=== PATIENT | male | born 1990 | race Caucasian/White ===

== ENCOUNTER 2024-10-18 13:26 | Emergency (ER) | payer SELFPAY ==
[2024-10-18 13:39] VITALS: BP 134/67; PULSE 83; RESP 16; TEMP 36.8; O2SAT 98; BMI 25.0
--- NOTE | 2024-10-18 17:57 | ED.DENTAL ---
HPI - Dental/Oral <Nanci Meredith PA-C - Last Filed: 10/18/24 18:42> General Chief complaint: Dental/Oral Stated complaint: facial swelling Time Seen by Provider: 10/18/24 17:51 Source: patient Mode of arrival: Ambulatory History of Present Illness HPI Narrative: Mr. Barrera is a pleasant 33-year-old male with no reported past medical history who presents to the emergency department for left jaw pain and swelling x2 days. Patient reports struggling with dental problems in the past. Yesterday he developed pain and swelling of the left lower jaw worsened today. He is occasionally having bloody drainage from this area. He has had an abscess on the right lower jaw in the past but never on the left. Denies fevers, chills, nausea, vomiting, flu-like symptoms. He does vape, no other drug use. He is moving to [place] tomorrow so was unable to see a dentist. Related Data Previous Rx's ?Medication ?Instructions ?Recorded chlorhexidine gluconate 0.12 % 15 ml buccal DAILY #1,500 mL 10/18/24 mouthwash (Peridex) Allergies Allergy/AdvReac Type Severity Reaction Status Date / Time No Known Drug Allergies Allergy Verified 10/18/24 13:39 Review of Systems <Nanci Meredith PA-C - Last Filed: 10/18/24 18:42> Review of Systems ROS Unobtainable: All systems reviewed & are unremarkable except as noted in HPI and below Patient History <Nanci Meredith PA-C - Last Filed: 10/18/24 18:42> Social History Smoking Status: Current some day smoker Smoking Status: Current some day smoker tobacco type: vaping Exam <Nanci Meredith PA-C - Last Filed: 10/18/24 18:42> Narrative Exam Narrative: GENERAL: 33 year old patient appears stated age. Well-developed patient, in no acute distress. HEAD: Atraumatic. Normocephalic. EYES: PERRL. Extraocular motions intact. No scleral icterus. No injection or drainage. ENT: Patient has external swelling of the left lower jaw and tenderness to palpation of the left lower molar #18, which is fractured with decay. No fluctuance or expressible drainage from left lower gingiva. Posterior oropharynx is widely patent, uvula is midline, submandibular region is soft in the floor of the mouth is soft as well. NECK: Trachea midline. Cervical ROM intact. Palpable bilateral cervical lymphadenopathy. CARDIOVASCULAR: Regular rate and rhythm. RESPIRATORY: ?Nonlabored respirations. ?Speaking in clear, full sentences. ?Clear to auscultation. Breath sounds equal bilaterally. No wheezes, rales, or rhonchi. ? NEURO: AOx3. ?Clear speech. ?Moves all 4 extremities appropriately. SKIN: No rash or erythema of visible areas. Initial Vital Signs Initial Vital Signs: Vital Signs Temperature 98.2 F 10/18/24 13:39 Pulse Rate 83 10/18/24 13:39 Respiratory Rate 16 10/18/24 13:39 Blood Pressure 134/67 10/18/24 13:39 Pulse Oximetry 98 10/18/24 13:39 Oxygen Delivery Method Room Air 10/18/24 13:39 <Obed Doan MD - Last Filed: 10/31/24 10:15> Initial Vital Signs Initial Vital Signs: Vital Signs Temperature 98.2 F 10/18/24 13:39 Pulse Rate 83 10/18/24 13:39 Respiratory Rate 16 10/18/24 13:39 Blood Pressure 134/67 10/18/24 13:39 Pulse Oximetry 98 10/18/24 13:39 Oxygen Delivery Method Room Air 10/18/24 13:39 Course <Nanci Meredith PA-C - Last Filed: 10/18/24 18:42> Orders Ordered: Discontinued Medications Amoxicillin/Clavulanate Potassium (Amoxicillin/Clav 875/125 Mg) 1 tab PO NOW ONE Stop: 10/18/24 18:12 Last Admin: 10/18/24 18:23 Dose: 1 tab Documented By: KENDRICK Ketorolac Tromethamine (Ketorolac 30 Mg/Ml Vial) 30 mg IM NOW ONE Stop: 10/18/24 18:12 Last Admin: 10/18/24 18:22 Dose: 30 mg Documented By: KENDRICK Vital Signs Vital signs: Vital Signs - 8 hr 10/18/24 13:39 10/18/24 17:58 Temperature 98.2 F Pulse Rate 83 85 Respiratory Rate 16 Blood Pressure 134/67 133/68 Pulse Oximetry 98 99 Oxygen Delivery Method Room Air Room Air <Obed Doan MD - Last Filed: 10/31/24 10:15> Orders Ordered: Discontinued Medications Amoxicillin/Clavulanate Potassium (Amoxicillin/Clav 875/125 Mg) 1 tab PO NOW ONE Stop: 10/18/24 18:12 Last Admin: 10/18/24 18:23 Dose: 1 tab Documented By: KENDRICK Ketorolac Tromethamine (Ketorolac 30 Mg/Ml Vial) 30 mg IM NOW ONE Stop: 10/18/24 18:12 Last Admin: 10/18/24 18:22 Dose: 30 mg Documented By: KENDRICK Vital Signs Vital signs: Vital Signs - 8 hr 10/18/24 13:39 10/18/24 17:58 Temperature 98.2 F Pulse Rate 83 85 Respiratory Rate 16 Blood Pressure 134/67 133/68 Pulse Oximetry 98 99 Oxygen Delivery Method Room Air Room Air MDM - Dental/Oral <Nanci Meredith PA-C - Last Filed: 10/18/24 18:42> Medical Records Medical records narrative: Not available for review. [facility] Narrative Medical decision making narrative: 33-year-old male with no reported past medical history who presents to the emergency department for left jaw pain and swelling x2 days. Differential diagnosis includes but isn't limited to left lower dental infection, dental abscess, parotitis, cervical lymphadenopathy, etc. On exam patient is in no acute distress, nontoxic-appearing, all vital signs within normal limits. Oropharynx is widely patent. He is swelling of the left lower jaw and tenderness palpation of the left lower posterior molar. No visible periapical abscess however I do suspect dental root infection. We will treat with Augmentin b.i.d. times 10 days, Toradol in the ED, Peridex mouthwash, and advised prompt follow up with a dentist for further management. Discussed strict ED return precautions. Patient verbalized understanding all information and is agreeable to the plan. He is stable for discharge home. Discharge Plan Departure Patient Disposition: Home Clinical Impression: Dental infection Instructions: Tooth Abscess, DI for Dental Pain Activity Restrictions/Additional Instructions: Dear Bruce, Thank you for coming to the emergency department. Today your physical exam is concerning for a left lower dental infection. Please complete the full course of antibiotics that you have been prescribed and follow up with a dentist as soon as possible for further management. Antibiotics have been sent to [facility] in [place]. Please return to the ER immediately if you develop any new or worsening symptoms, fevers, trouble swallowing or breathing or any other concerns. Please take Ibuprofen (Motrin/Advil) or Acetaminophen (Tylenol) for pain. These are available over the counter. You may take Ibuprofen 600 mg every 8 hours with food for pain. You may also take Acetaminophen 650 mg every 4-6 hours for pain. Do not exceed 3000 mg of Tylenol a day as this can cause liver damage. Do not drink alcohol with either of these medications. Please follow up with your primary care doctor within the next 2-3 days for ER follow-up. (If you do not have a PCP you can call [phone]. ?to schedule an appointment with an [facility] Primary Care Provider) IF YOU DEVELOP ANY NEW OR WORSENING SYMPTOMS, RETURN TO THE ER! Please read the attached instructions, they highlight more specific treatments and interventions for you at home. Thank you for letting me participate in your care, Nanci Meredith PA-C Prescriptions: New chlorhexidine gluconate [Peridex] 0.12 % mouthwash 15 ml buccal DAILY Qty: 1500 0RF Stand Alone Forms: Patient Portal/API ED Sign-out <Obed Doan MD - Last Filed: 10/31/24 10:15> Cosign ED Attending Cosignature Attestation: I was immediately available in the department for consultation. ?This documentation has been reviewed and I agree with assessment and plan. Supervised by Obed Doan MD
[2024-10-18 17:58] VITALS: BP 133/68; PULSE 85; O2SAT 99
[2024-10-18] MEDS: KETOROLAC 30 MG/ML VIAL IM (18:22)
[2024-10-18] MEDS: AMOXICILLIN/CLAV 875/125 MG 1 TAB PO (18:23)
[2024-10-18 18:45] VITALS: RESP 16
== END 2024-10-18 19:03 | disposition home or self-care (01) ==
PROVIDERS: Emergency Provider Physician Assistant
DX: K04.7 Periapical abscess without sinus (principal)
CPT/HCPCS: 96372; 99283; J1885